=== PATIENT | male | born 1965 ===

== ENCOUNTER 2019-11-20 17:11 | Emergency (ER) | payer OTHER ==
[~2019-11-20] VITALS: Ht 172.7 cm; Wt 121.1 kg
[2019-11-20] MEDS ORDERED: ZOLOFT100 MG (17:16)
[2019-11-20] MEDS ORDERED: XANAX0.25 MG (17:16)
[2019-11-20] MEDS ORDERED: LATUDA60 MG (17:16)
[2019-11-20] MEDS ORDERED: PROAIR HFA8.5 GM IH (17:17)
== END 2019-11-21 00:17 | disposition home or self-care (01) ==
LOC: ER 17:11
DX: R07.89 Other chest pain (principal); U07.1 COVID-19